=== PATIENT | female | born 1980 | race Two or more races ===

== ENCOUNTER 2020-01-06 14:25 | Emergency (ER) | payer MEDICAID, OTHER ==
[~2020-01-06] VITALS: Ht 162.6 cm; Wt 49.9 kg
[2020-01-06 15:11] LABS: Basophils # (auto) 0.1 10 ^3/uL (0-0.2); Basophils % (auto) 0.6 % (0.0-2.0); Eosinophils # (auto) 0.1 10 ^3/uL (0-0.8); Hematocrit 36.8 % (36.0-46.0); Hemoglobin 12.4 g/dL (12.2-16.2); Lymphocytes # (auto) 1.3 10 ^3/uL (0.4-5.4); Lymphocytes % (auto) 14.1 % (10.0-50.0); Mean Corpuscular Hgb Conc. 33.5 g/dL (32.0-36.0); Mean Corpuscular Volume 92.3 fL (80.0-100.0); Monocytes # (auto) 0.6 10 ^3/uL (0-1.3); Monocytes % (auto) 6.5 % (0.0-12.0); Neutrophils # (auto) 7.4 10 ^3/uL (1.6-8.6); Neutrophils % (auto) 77.8 % (37.0-80.0); Platelet Count (auto) 232 10^3/uL (140-450); Red Blood Cells 3.99 10^6/uL (4.0-5.20); Red Cell Distribution Width 13.5 % (11.8-14.3); White Blood Cell 9.5 10^3/uL (4.4-10.8)
[2020-01-06 16:00] LABS: Urine Bacteria FEW /hpf (None Seen); Urine Blood TRACE /uL (Negative); Urine Specific Gravity 1.005 (1.001-1.035); Urine WBC 11 /hpf (0 - 5)
[2020-01-06 17:01] VITALS: BP 108/66
== END 2020-01-06 17:20 | disposition home or self-care (01) ==
LOC: ER 14:25
DX: O23.41 Unspecified infection of urinary tract in pregnancy, first trimester (principal); Z3A.01 Less than 8 weeks gestation of pregnancy
CPT/HCPCS: 36415; 76801; 81001; 84702; 85025

== ENCOUNTER → 2024-09-12 | Outpatient (CLI) | payer BC, OTHER ==
[2024-09-12 14:34] LABS: Basophils # (auto) 0 10 ^3/uL (0-0.2); Basophils % (auto) 0.5 % (0.0-2.0); Eosinophils # (auto) 0.1 10 ^3/uL (0-0.8); Hematocrit 36.5 % (36.0-46.0); Hemoglobin 12.7 g/dL (12.2-16.2); Lymphocytes # (auto) 1.1 10 ^3/uL (0.4-5.4); Lymphocytes % (auto) 11.4 % (10.0-50.0); Mean Corpuscular Hemoglobin 32.3 pg (28.0-32.0); Mean Corpuscular Hgb Conc. 34.7 g/dL (32.0-36.0); Mean Corpuscular Volume 93.2 fL (80.0-100.0); Monocytes # (auto) 0.6 10 ^3/uL (0-1.3); Monocytes % (auto) 5.7 % (0.0-12.0); Neutrophils % (auto) 81.4 % (37.0-80.0); Platelet Count (auto) 218 10^3/uL (140-450); Red Blood Cells 3.92 10^6/uL (4.0-5.20); Red Cell Distribution Width 13.6 % (11.8-14.3); White Blood Cell 9.8 10^3/uL (4.4-10.8)
[2024-09-12 15:03] LABS: Alanine Aminotransferase 13 U/L (7-40); Albumin 3.8 g/dL (3.2-4.8); Anion Gap 5 (5-15); BUN/Creatinine Ratio 14.9 (10.0-20.0); Blood Urea Nitrogen 10 mg/dL (9-23); Calcium 9.5 mg/dL (8.7-10.4); Carbon Dioxide 24 mmol/L (20-31); Cholesterol 190 mg/dL (< 200); Glucose 87 mg/dL (74-106); Potassium 3.9 mmol/L (3.5-5.1); Sodium 137 mmol/L (136-145); Thyroid Stimulating Hormone 1.24 uIU/mL (0.55-4.78); Triglycerides 125 mg/dL (< 150)
[2024-09-12 15:04] LABS: Alkaline Phosphatase 46 U/L (46-116); Aspartate Aminotransferase 12 U/L (13-40); Bilirubin, Total 0.4 mg/dL (0.2-1.0); Chloride 108 mmol/L (98-107); HDL Cholesterol 76 mg/dL (40-59); LDL Cholesterol 105 mg/dL (< 100); Total Protein 6.3 g/dL (5.7-8.2)
[2024-09-12 15:11] LABS: Beta HCG, Quantitative 93040.6 mIU/mL (1.5-4.2)
[2024-09-12 15:31] LABS: Amphetamine Screen, Urine Neg (NEGATIVE); Barbiturate Scree,Urine Neg (NEGATIVE); Benzodiazephine Screen, Urine Neg (NEGATIVE); Cannabinoid Screen, Urine Neg (NEGATIVE); Cocaine Screen, Urine Neg (NEGATIVE); Opiate Scree,Urine Neg (NEGATIVE); Phencyclidine Screen, Urine Neg (NEGATIVE)
[2024-09-13 06:06] LABS: RPR Non Reactive (Non Reactive)
[2024-09-13 10:50] LABS: Varicella Zoster IgG Antibody Reactive (Non Reactive)
[2024-09-13 15:07] LABS: Chlamydia Trachomatis, NAA Negative (Negative); Neisseria gonorrhoeae, NAA Negative (Negative)
[2024-09-15 04:06] LABS: QuantiFERON-TB Gold Plus Negative (Negative)
== END | disposition home or self-care (01) ==
LOC: LAB 14:02
PROVIDERS: ATTEND Obstetrics & Gynecology
DX: Z34.80 Encounter for supervision of other normal pregnancy, unspecified trimester (principal); N39.0 Urinary tract infection, site not specified
CPT/HCPCS: 36415; 80053; 80061; 80307; 84439; 84443; 84702; 85025; 86592; 86762; 86787; 86850; 86900; 86901; 87086; 87340

== ENCOUNTER 2025-01-03 19:20 | Observation (INO) | payer BC, OTHER ==
[2025-01-03 20:06] LABS: Urine Bacteria None Seen /hpf (None Seen)
[2025-01-03 20:07] LABS: Basophils # (auto) 0 10 ^3/uL (0-0.2); Basophils % (auto) 0.4 % (0.0-2.0); Eosinophils # (auto) 0.1 10 ^3/uL (0-0.8); Eosinophils % (auto) 0.9 % (0.0-7.0); Hemoglobin 13.2 g/dL (12.2-16.2); Lymphocytes # (auto) 1.2 10 ^3/uL (0.4-5.4); Lymphocytes % (auto) 12.9 % (10.0-50.0); Mean Corpuscular Hemoglobin 32.3 pg (28.0-32.0); Mean Corpuscular Hgb Conc. 34.7 g/dL (32.0-36.0); Mean Corpuscular Volume 92.9 fL (80.0-100.0); Monocytes # (auto) 0.4 10 ^3/uL (0-1.3); Monocytes % (auto) 4.1 % (0.0-12.0); Neutrophils # (auto) 7.4 10 ^3/uL (1.6-8.6); Neutrophils % (auto) 81.7 % (37.0-80.0); Nucleated Red Blood Cells % 0.1 %; Platelet Count (auto) 181 10^3/uL (140-450); Red Blood Cells 4.09 10^6/uL (4.0-5.20); Red Cell Distribution Width 13.9 % (11.8-14.3); White Blood Cell 9.1 10^3/uL (4.4-10.8)
[2025-01-03 20:20] LABS: Alanine Aminotransferase 16 U/L (7-40); Albumin 3.9 g/dL (3.2-4.8); Alkaline Phosphatase 82 U/L (46-116); Anion Gap 8 (5-15); Aspartate Aminotransferase 15 U/L (13-40); BUN/Creatinine Ratio 14.8 (10.0-20.0); Calcium 9.5 mg/dL (8.7-10.4); Carbon Dioxide 22 mmol/L (20-31); Potassium 4.1 mmol/L (3.5-5.1); Sodium 138 mmol/L (136-145); Total Protein 6.1 g/dL (5.7-8.2); Uric Acid 3.7 mg/dL (3.1-7.8)
[2025-01-03 20:21] LABS: Bilirubin, Total 0.8 mg/dL (0.2-1.0)
[2025-01-03 20:25] LABS: Protein, Urine 79.7 mg/dL (1-14)
[2025-01-03 20:25] LABS: INR 0.91 (0.9-1.15); Partial Thromboplastin Time 26.7 SEC (24.5-34.5); Prothrombin Time 9.7 sec (9.3-11.8)
[2025-01-03 20:28] LABS: Urine Protein/Creatinine Ratio 3.62
[2025-01-03] MEDS: LACTATED RINGER'S 1,000 ML IV ONE (20:39)
[2025-01-03 20:40] LABS: Blood Urea Nitrogen 8 mg/dL (9-23); Chloride 108 mmol/L (98-107); Glucose 71 mg/dL (74-106)
[2025-01-03 20:49] LABS: Urine Blood Negative /uL (Negative); Urine Clarity Clear (Clear); Urine Color Light-Yellow (Yellow); Urine Protein, UAD 1+ (Negative); Urine Specific Gravity 1.006 (1.001-1.035); Urine Squamous Epithelial Cell FEW /hpf (<5); Urine Urobilinogen Normal (Negative); Urine WBC 1 /HPF (0-5); Urine pH 7.5 (5.0-9.0)
--- NOTE | 2025-01-04 07:35 | DVHDS2 ---
Physician Discharge Progress N Final Diagnosis: abd pain,cramping 27wks Operations or Procedures: Operations or Procedures nst reviewed reactive,sono Condition on Discharge: Good Disposition: Home Discharge Instructions: Diet: Cardiac 2g Na,low cholest Activity: Light activity Medications: na Follow Up Care: Specialist: 1w Discharge Statement: "Patient was advised to return to the ER or call 911 if any headaches, dizziness, shortness of breath, chest pain, abdominal pain, bleeding, fevers, or worsening of medical condition. Patient was counseled about treatment plan, medications, possible side effects, patientverbalized understanding. All questions were answered to the best of my ability. This discharge took greater then 30 minutes in planning, reviewing documentation, counseling the patient, and discussing with other team members." Visit Coding OBGYN Date of Service: January 03, 2025 Billing Provider: ROBBIN JOY DO HEMATOLOGY NURSE Common Visit Codes: 28732-OTHQFRB OBS CARE (HIGH) HEMATOLOGY NURSE Procedure Codes: 07812-48- NON-STRESS TEST ROBBIN JOY DO January 04, 2025 07:35
== END 2025-01-03 21:59 | disposition home or self-care (01) ==
LOC: LDRP 19:20
PROVIDERS: ADMIT Obstetrics & Gynecology; ATTEND Obstetrics & Gynecology
DX: O62.9 Abnormality of forces of labor, unspecified (principal); R79.1 Abnormal coagulation profile; Z98.890 Other specified postprocedural states; Z79.899 Other long term (current) drug therapy; Z3A.27 27 weeks gestation of pregnancy
CPT/HCPCS: 36415; 59025; 80053; 81001; 81002; 82570; 84156; 84550; 85025; 85610; 85730; 94760; 96360; 96361; G0378

== ENCOUNTER 2025-01-05 07:46 | Observation (INO) | payer BC, OTHER ==
[~2025-01-05] VITALS: Ht 167.6 cm; Wt 71.7 kg
[2025-01-05] MEDS ORDERED: PREN1TAB71 OR ×2 (10:29)
[2025-01-05 11:06] LABS: Protein, Urine <6 mg/dL (1-14); Urine Total Volume, 24 Hours 2750 mL
[2025-01-05 11:44] LABS: Creatinine, Urine 65.71 mg/dL (30.0-125.0); Urine Protein/Creatinine Ratio 0.09
[2025-01-05 11:47] LABS: Urine Bacteria FEW /hpf (None Seen); Urine Blood Negative /uL (Negative); Urine Clarity Clear (Clear); Urine Color Light-Yellow (Yellow); Urine Mucus FEW (None Seen); Urine Protein, UAD Negative (Negative); Urine Specific Gravity 1.012 (1.001-1.035); Urine Squamous Epithelial Cell MOD /hpf (<5); Urine Urobilinogen Normal (Negative); Urine WBC 1 /HPF (0-5)
[2025-01-05 11:50] LABS: Protein, Urine < 6.0 mg/dL (1-14)
--- NOTE | 2025-01-06 06:16 | DVHDS2 ---
Discharge Summary Date of Admission January 05, 2025 at 10:00 Date of Discharge: January 05, 2025 Admitting Diagnosis PIH rule out 24 hr protein Labs/Diagnostic Data: Laboratory Results Test 01/05/25 11:00 01/05/25 10:26 Urine Color Light-yellow (Yellow) Urine Clarity Clear (Clear) Urine pH 6.0 (5.0-9.0) Urine Specific [place] 1.012 (1.001-1.035) Urine Protein Negative (Negative) Urine Ketones Negative (Negative) Urine Blood Negative /uL (Negative) Urine Nitrite Negative (Negative) Urine Bilirubin Negative (Negative) Urine Urobilinogen Normal mg/dL (Negative) Urine Leukocyte Esterase Negative /uL (Negative) Urine RBC <1 /hpf (0 - 4) Urine Microscopic WBC 1 /HPF (0-5) Urine Squamous Epithelial Cells Mod /hpf (<5) Urine Bacteria Few /hpf (None Seen) Urine Mucus Few (None Seen) Urine Creatinine 65.71 mg/dL (30.0-125.0) Urine Protein/Creatinine Ratio 0.09 Urine Glucose Normal mg/dL (Normal) Urine Total Protein < 6.0 mg/dL (1-14) Urine Total Protein 24 Hour mg/24 Hr (<149.1) Brief Hx & Hospital Course: NST reassuring Condition at Discharge: Good Final Diagnosis/Problems List NO sign of PIH Discharge Disposition: Home Discharge Instruct/Medications Diet: Regular Activity: No Restrictions, As Tolerated Activity comment: PIH precautions Follow Up/Referral: as scheduled Discharge Statement: "Patient was advised to return to the ER or call 911 if any headaches, dizziness, shortness of breath, chest pain, abdominal pain, bleeding, fevers, or worsening of medical condition. Patient was counseled about treatment plan, medications, possible side effects, patientverbalized understanding. All questions were answered to the best of my ability. This discharge took greater then 30 minutes in planning, reviewing docu mentation, counseling the patient, and discussing with other team members." ASSESSMENT ASSESSMENT Assessment Visit Coding OBGYN Date of Service: January 05, 2025 Billing Provider: JORDYN TOVAR DO SERVICES DELIVERY DRIVER Common Visit Codes: 70634-WIL/OBS SAME DATE (LOW), 15267-ZZQ/OBS SAME DATE (MOD), 88532-XHB/OBS SAME DATE (HIGH) SERVICES DELIVERY DRIVER Procedure Codes: 57691-36- NON-STRESS TEST JORDYN TOVAR DO January 06, 2025 06:16
== END 2025-01-05 12:18 | disposition home or self-care (01) ==
LOC: LDRP 10:00
PROVIDERS: ADMIT Obstetrics & Gynecology; ATTEND Obstetrics & Gynecology
DX: O13.3 Gestational [pregnancy-induced] hypertension without significant proteinuria, third trimester (principal); O26.893 Other specified pregnancy related conditions, third trimester; R10.10 Upper abdominal pain, unspecified; Z98.890 Other specified postprocedural states; Z79.899 Other long term (current) drug therapy; Z3A.00 Weeks of gestation of pregnancy not specified
CPT/HCPCS: 59025; 81001; 81002; 82570; 84156; G0378

== ENCOUNTER → 2025-01-08 | Outpatient (CLI) | payer BC, OTHER ==
[~2025-01-08] MED LIST: PREN1TAB71 OR
[2025-01-08 08:40] LABS: Basophils # (auto) 0 10 ^3/uL (0-0.2); Basophils % (auto) 0.3 % (0.0-2.0); Eosinophils # (auto) 0.1 10 ^3/uL (0-0.8); Eosinophils % (auto) 1.4 % (0.0-7.0); Hematocrit 33.4 % (36.0-46.0); Hemoglobin 11.7 g/dL (12.2-16.2); Lymphocytes # (auto) 1.2 10 ^3/uL (0.4-5.4); Lymphocytes % (auto) 13.5 % (10.0-50.0); Mean Corpuscular Hemoglobin 32.6 pg (28.0-32.0); Mean Corpuscular Hgb Conc. 34.9 g/dL (32.0-36.0); Mean Corpuscular Volume 93.2 fL (80.0-100.0); Monocytes # (auto) 0.6 10 ^3/uL (0-1.3); Monocytes % (auto) 6.5 % (0.0-12.0); Neutrophils # (auto) 7.2 10 ^3/uL (1.6-8.6); Neutrophils % (auto) 78.3 % (37.0-80.0); Platelet Count (auto) 184 10^3/uL (140-450); Red Blood Cells 3.58 10^6/uL (4.0-5.20); White Blood Cell 9.2 10^3/uL (4.4-10.8)
[2025-01-08 09:05] LABS: Alanine Aminotransferase 17 U/L (7-40); Albumin 3.5 g/dL (3.2-4.8); Alkaline Phosphatase 74 U/L (46-116); Anion Gap 8 (5-15); BUN/Creatinine Ratio 15.1 (10.0-20.0); Carbon Dioxide 24 mmol/L (20-31); Chloride 106 mmol/L (98-107); Glucose 87 mg/dL (74-106); Potassium 3.8 mmol/L (3.5-5.1); Sodium 138 mmol/L (136-145); Total Protein 5.8 g/dL (5.7-8.2)
[2025-01-08 09:06] LABS: Bilirubin, Total 0.3 mg/dL (0.2-1.0)
[2025-01-08 09:07] LABS: Aspartate Aminotransferase 13 U/L (13-40); Blood Urea Nitrogen 8 mg/dL (9-23)
[2025-01-10 02:06] LABS: Chlamydia Trachomatis, NAA Negative (Negative); Neisseria gonorrhoeae, NAA Negative (Negative)
== END | disposition home or self-care (01) ==
LOC: LAB 08:10
DX: Z34.80 Encounter for supervision of other normal pregnancy, unspecified trimester (principal); Z3A.00 Weeks of gestation of pregnancy not specified
CPT/HCPCS: 36415; 80053; 82951; 85025; 86780; 86850; 86900; 86901

== ENCOUNTER 2025-02-06 12:58 | Observation (INO) | payer BC ==
[~2025-02-06] VITALS: Ht 162.6 cm; Wt 68.0 kg
--- NOTE | 2025-02-06 14:23 | DVH ---
BIOPHYSICAL PROFILE HISTORY: advanced maternal age TECHNIQUE: Multiple transabdominal real-time grayscale sonographic images through the gravid uterus of the fetus with duplex Doppler color flow and M-mode spectral analysis FINDINGS: BIOPHYSICAL PROFILE: breathing score: movement score: 2 tone score: 2 Quantitative KEVIN score: 2 (KEVIN: 11.0 Cm.) Total score: 8 The cervix is closed and measures 3.1 cm. Single live fetus in cephalic presentation. heart rate 172 beats per minute. Anterior placenta without previa or abruption IMPRESSION: Biophysical profile score: 8
[2025-02-06] MEDS ORDERED: TERBUTALINE SULFATE 1 MG/ML 1ML VIAL SC ONE (14:24)
[2025-02-06] MEDS ORDERED: LACTATED RINGER'S 1,000 ML IV SCH (14:45)
[2025-02-06] MEDS: TERBUTALINE SULFATE 1 MG/ML 1ML VIAL SC SCH (14:53)
[2025-02-06] MEDS: LACTATED RINGER'S 1,000 ML IV ONE (14:58)
[2025-02-06] MEDS ORDERED: BETAMETHASONE ACET (30mg/5ml) 5ml Vial 6mg/ml ONE (15:15)
[2025-02-06] MEDS: BETAMETHASONE ACET (30mg/5ml) 5ml Vial 6mg/ml IM SCH (15:41)
[2025-02-06] MEDS: NIFEdipine 10 MG CAP PO ONE (16:50)
--- NOTE | 2025-02-07 18:55 | DVHDS2 ---
Physician Discharge Progress N Final Diagnosis: ptl 32wks Operations or Procedures: Operations or Procedures nst reviwed reactive,sono Condition on Discharge: Good Disposition: Home Discharge Instructions: Diet: Regular Activity: Light activity Medications: na Follow Up Care: Specialist: 1w Discharge Statement: "Patient was advised to return to the ER or call 911 if any headaches, dizziness, shortness of breath, chest pain, abdominal pain, bleeding, fevers, or worsening of medical condition. Patient was counseled about treatment plan, medications, possible side effects, patientverbalized understanding. All questions were answered to the best of my ability. This discharge took greater then 30 minutes in planning, reviewing documentation, counseling the patient, and discussing with other team members." Visit Coding OBGYN Date of Service: Feb 06, 2025 Billing Provider: ROBBIN JOY DO SHIPPER RECEIVER Common Visit Codes: 70735-[id number] OBS CARE (HIGH) SHIPPER RECEIVER Procedure Codes: 01073-69- NON-STRESS TEST ROBBIN JOY DO Feb 07, 2025 18:55
== END 2025-02-06 16:55 | disposition home or self-care (01) ==
LOC: UNDOADMOB 12:58 → LDRP 12:58
PROVIDERS: ADMIT Obstetrics & Gynecology; ATTEND Obstetrics & Gynecology
DX: O60.03 Preterm labor without delivery, third trimester (principal); Z3A.32 32 weeks gestation of pregnancy; Z79.899 Other long term (current) drug therapy; Z98.890 Other specified postprocedural states
CPT/HCPCS: 76818; 81002; 94760; 96360; 96361; 96372; G0378; J0702; J3105; 59025; 76819

== ENCOUNTER 2025-02-07 06:56 | Observation (INO) | payer BC, OTHER ==
[~2025-02-07] VITALS: Ht 162.6 cm; Wt 68.0 kg
[2025-02-07] MEDS: BETAMETHASONE ACET (30mg/5ml) 5ml Vial 6mg/ml IM ONE (07:31)
--- NOTE | 2025-02-07 18:41 | DVHDS2 ---
Physician Discharge Progress N Final Diagnosis: ptl 32wks Operations or Procedures: Operations or Procedures nst reactive reviewed Condition on Discharge: Good Disposition: Home Discharge Instructions: Diet: Regular Activity: Light activity Medications: na Follow Up Care: Specialist: 1w Discharge Statement: "Patient was advised to return to the ER or call 911 if any headaches, dizziness, shortness of breath, chest pain, abdominal pain, bleeding, fevers, or worsening of medical condition. Patient was counseled about treatment plan, medications, possible side effects, patientverbalized understanding. All questions were answered to the best of my ability. This discharge took greater then 30 minutes in planning, reviewing documentation, counseling the patient, and discussing with other team members." Visit Coding OBGYN Date of Service: Feb 07, 2025 Billing Provider: ROBBIN JOY DO SENIOR PRIVATE CLIENT ADVISOR Common Visit Codes: 44794-[id number] INP/OBS CARE (HIGH) SENIOR PRIVATE CLIENT ADVISOR Procedure Codes: 19846-76- NON-STRESS TEST ROBBIN JOY DO Feb 07, 2025 18:41
== END 2025-02-07 07:42 | disposition home or self-care (01) ==
LOC: LDRP 06:56
PROVIDERS: ADMIT Obstetrics & Gynecology; ATTEND Obstetrics & Gynecology
DX: O60.03 Preterm labor without delivery, third trimester (principal); Z3A.32 32 weeks gestation of pregnancy; Z79.899 Other long term (current) drug therapy; Z98.890 Other specified postprocedural states
CPT/HCPCS: 59025; 81002; 94760; 96372; G0378

== ENCOUNTER 2025-02-14 06:36 | Observation (INO) | payer BC, OTHER ==
--- NOTE | 2025-02-14 10:30 | DVHDS2 ---
Physician Discharge Progress N Final Diagnosis: AMA,Threatened labor Secondary Diagnosis: Encounter for surveillance Operations or Procedures: Operations or Procedures NST/BPP/KEVIN Cx length all wnl Condition on Discharge: Stable Disposition: Home Discharge Instructions: Diet: Regular Activity: Light activity Follow Up/Referral: As scheduled Medications: N/A Follow Up Care: Discharge Statement: "Patient was advised to return to the ER or call 911 if any headaches, dizziness, shortness of breath, chest pain, abdominal pain, bleeding, fevers, or worsening of medical condition. Patient was counseled about treatment plan, medications, possible side effects, patientverbalized understanding. All questions were answered to the best of my ability. This discharge took greater then 30 minutes in planning, reviewing documentation, counseling the patient, and discussing with other team members." Visit Coding OBGYN Date of Service: Feb 14, 2025 Billing Provider: MARLEY PEREZ DO BAG TESTER Common Visit Codes: 95982-JPU/OBS SAME DATE (MOD) BAG TESTER Procedure Codes: 03229-78- NON-STRESS TEST MARLEY PEREZ DO Feb 14, 2025 10:30
--- NOTE | 2025-02-14 10:38 | DVH ---
BIOPHYSICAL PROFILE HISTORY: AMA/PTL Comparison Study: US BIOPHYSICAL PROFILE on DOS: 02/06/25 TECHNIQUE: Multiple real-time grayscale sonographic images through the gravid uterus of the fetus wi th duplex Doppler color flow and M-mode spectral analysis FINDINGS: BIOPHYSICAL PROFILE: breathing score: 2 movement score: 2 tone score: 2 Quantitative KEVIN score: 2 (KEVIN: 15.8 Cm.) Total score: 8 The cervix is closed. Measures 4.1 cm. Single live fetus in cephalic presentation. heart rate 149 beats per minute. Fundal placenta without previa or abruption IMPRESSION: Biophysical profile score: 8
== END 2025-02-14 10:36 | disposition home or self-care (01) ==
LOC: LDRP 09:00
PROVIDERS: ADMIT Obstetrics & Gynecology; ATTEND Obstetrics & Gynecology
DX: O47.03 False labor before 37 completed weeks of gestation, third trimester (principal); Z3A.33 33 weeks gestation of pregnancy; Z79.899 Other long term (current) drug therapy; Z98.890 Other specified postprocedural states
CPT/HCPCS: 59025; 76819; 81002; G0378; 76818

== ENCOUNTER 2025-02-21 06:58 | Observation (INO) | payer BC, OTHER ==
[2025-02-21] MEDS ORDERED: NIFE10CA52 PO (09:36)
--- NOTE | 2025-02-21 09:59 | DVH ---
BIOPHYSICAL PROFILE HISTORY: PTL/AMA TECHNIQUE: Multiple transabdominal real-time grayscale sonographic images through the gravid uterus o f the fetus with duplex doppler color flow and M-mode spectral analysis FINDINGS: BIOPHYSICAL PROFILE: breathing score: 2 movement score: 2 tone score: 2 Quantitative KEVIN score: 2 (KEVIN: 10.1 cm.) Total score: 8/8 The cervix 4.9 cm Single live fetus in cephalic presentation. heart rate 126 beats per minute. Grade 2 fundal placenta without previa or abruption Biophysical profile score 8/8 corresponding to an ADY of 04/03/25 IMPRESSION: Biophysical profile score: 8/8
--- NOTE | 2025-02-21 13:16 | DVHDS2 ---
Physician Discharge Progress N Final Diagnosis: ptl,ama 34wks Operations or Procedures: Operations or Procedures nst reactive reviwed,sono Condition on Discharge: Good Disposition: Home Discharge Instructions: Diet: Regular Activity: Light activity Medications: na Follow Up Care: Specialist: 1w Discharge Statement: "Patient was advised to return to the ER or call 911 if any headaches, dizziness, shortness of breath, chest pain, abdominal pain, bleeding, fevers, or worsening of medical condition. Patient was counseled about treatment plan, medications, possible side effects, patientverbalized understanding. All questions were answered to the best of my ability. This discharge took greater then 30 minutes in planning, reviewing documentation, counseling the patient, and discussing with other team members." Visit Coding OBGYN Date of Service: Feb 21, 2025 Billing Provider: ROBBIN JOY DO SAP MOBILITY ARCHITECT Common Visit Codes: 31425-VOSPWBO OBS CARE (HIGH) SAP MOBILITY ARCHITECT Procedure Codes: 15541-01- NON-STRESS TEST ROBBIN JOY DO Feb 21, 2025 13:16
== END 2025-02-21 10:37 | disposition home or self-care (01) ==
LOC: UNDOADMOB 09:00 → LDRP 09:00 → UNDODISOB 10:37
PROVIDERS: ADMIT Obstetrics & Gynecology; ATTEND Obstetrics & Gynecology
DX: O60.03 Preterm labor without delivery, third trimester (principal); O09.523 Supervision of elderly multigravida, third trimester; Z3A.34 34 weeks gestation of pregnancy; Z79.899 Other long term (current) drug therapy; Z98.890 Other specified postprocedural states
CPT/HCPCS: 76818; 81002; 94760; G0378; 59025; 76819

== ENCOUNTER 2025-02-28 09:01 | Observation (INO) | payer BC, OTHER ==
[~2025-02-28 09:01] MED LIST changes: +NIFE10CA52 PO
--- NOTE | 2025-02-28 10:29 | DVH ---
BIOPHYSICAL PROFILE HISTORY: PTL, AMA TECHNIQUE: Multiple transabdominal real-time grayscale sonographic images through the gravid uterus of the fetus with duplex Doppler color flow and M-mode spectral analysis FINDINGS: BIOPHYSICAL PROFILE: breathing score: 2 movement score: 2 tone score: 2 Quantitative KEVIN score: 2 (KEVIN: 10.4 Cm.) Total score: 8 The cervix measures 4.2 cm. Single live fetus in cephalic presentation. heart rate 137 beats per minute. Fundal/anterior placenta without previa or abruption IMPRESSION: Biophysical profile score: 8
--- NOTE | 2025-02-28 13:12 | DVHDS2 ---
Physician Discharge Progress N Final Diagnosis: PTL, AMA 35wks Operations or Procedures: Operations or Procedures nst reactive reviwed,sono Condition on Discharge: Good Disposition: Home Discharge Instructions: Diet: Regular Activity: No Restrictions, As Tolerated Follow Up/Referral: weekly NST Medications: na Follow Up Care: Specialist: 4d Discharge Statement: "Patient was advised to return to the ER or call 911 if any headaches, dizziness, shortness of breath, chest pain, abdominal pain, bleeding, fevers, or worsening of medical condition. Patient was counseled about treatment plan, medications, possible side effects, patientverbalized understanding. All questions were answered to the best of my ability. This discharge took greater then 30 minutes in planning, reviewing documentation, counseling the patient, and discussing with other team members." Visit Coding OBGYN Date of Service: Feb 28, 2025 Billing Provider: ROBBIN JOY DO METAL CUT OFF SAW TENDER Common Visit Codes: [id number] OBS CARE (HIGH) METAL CUT OFF SAW TENDER Procedure Codes: 28609-87- NON-STRESS TEST ROBBIN JOY DO Feb 28, 2025 13:12
== END 2025-02-28 10:47 | disposition home or self-care (01) ==
LOC: LDRP 09:01
PROVIDERS: ADMIT Obstetrics & Gynecology; ATTEND Obstetrics & Gynecology
DX: O60.03 Preterm labor without delivery, third trimester (principal); O09.523 Supervision of elderly multigravida, third trimester; Z3A.35 35 weeks gestation of pregnancy; Z79.899 Other long term (current) drug therapy; Z98.890 Other specified postprocedural states
CPT/HCPCS: 76818; 81002; G0378; 59025; 76819

== ENCOUNTER → 2025-03-05 | Outpatient (CLI) | payer BC, OTHER ==
[2025-03-05 11:16] LABS: Hematocrit 35.6 % (36.0-46.0); Hemoglobin 12.2 g/dL (12.2-16.2); Mean Corpuscular Hemoglobin 31.2 pg (28.0-32.0); Mean Corpuscular Volume 90.7 fL (80.0-100.0); Nucleated Red Blood Cells % 0.0 %
[2025-03-06 12:07] LABS: Chlamydia Trachomatis, NAA Negative (Negative); Neisseria gonorrhoeae, NAA Negative (Negative)
== END | disposition home or self-care (01) ==
LOC: LAB 10:46
PROVIDERS: ATTEND Obstetrics & Gynecology
DX: Z34.80 Encounter for supervision of other normal pregnancy, unspecified trimester (principal); Z72.51 High risk heterosexual behavior; Z3A.00 Weeks of gestation of pregnancy not specified
CPT/HCPCS: 36415; 85025; 86780

== ENCOUNTER 2025-03-06 07:28 | Observation (INO) | payer BC, OTHER ==
--- NOTE | 2025-03-06 10:54 | DVH ---
CLINICAL HISTORY: labor. Advanced maternal age. COMPARISON: US BIOPHYSICAL PROFILE on DOS: 02/28/25, US BIOPHYSICAL PROFILE on DOS: 02/21/25, US BIOPHY SICAL PROFILE on DOS: 02/14/25 TECHNIQUE: biophysical profile was performed. Transabdominal sonographic images of the fetus we re obtained. Transvaginal imaging was performed to evaluate the cervix FINDINGS: The fetus is in cephalic position. heart rate measures 162 BPM. Amniotic fluid index measures 11.9 cm. The placenta is fundal/anterior in position without evidence of previa or abruption . There is mild funneling of the cervix measuring up to 0.6 cm. Cervical length measures 3.4 cm. BPP profile is an overall score of 8/8, with 2/2 points for breathing, with at least one episode of breathing over a 30 second duration during a 30 minute observation, 2/2 points for m ovements, with 3 or more discrete body or limb movements, 2/2 points for tone, with one or more episodes of extremity extension with return to flexion, or opening and closing of hand, and 2/ 2 points for amniotic fluid, with at least 1 pocket of amniotic fluid that measures 2 cm in 2 perpend icular planes. IMPRESSION: 1. BPP score of 8/8. 2. Funneling of the cervix. Cervical length measures 3.4 cm.
--- NOTE | 2025-03-07 07:46 | DVHDS2 ---
Physician Discharge Progress N Final Diagnosis: ama,ptl 36wks Operations or Procedures: Operations or Procedures nst reactive reviwed,sono Condition on Discharge: Good Disposition: Home Discharge Instructions: Diet: Regular Activity: No Restrictions, As Tolerated Medications: na Follow Up Care: Specialist: 1w Discharge Statement: "Patient was advised to return to the ER or call 911 if any headaches, dizziness, shortness of breath, chest pain, abdominal pain, bleeding, fevers, or worsening of medical condition. Patient was counseled about treatment plan, medications, possible side effects, patientverbalized understanding. All questions were answered to the best of my ability. This discharge took greater then 30 minutes in planning, reviewing docume ntation, counseling the patient, and discussing with other team members." Visit Coding OBGYN Date of Service: Mar 06, 2025 Billing Provider: ROBBIN JOY DO WHITEWATER RAFTING GUIDE Common Visit Codes: [id number] INP/OBS CARE (HIGH) WHITEWATER RAFTING GUIDE Procedure Codes: 69846-46- NON-STRESS TEST ROBBIN JOY DO Mar 07, 2025 07:46
== END 2025-03-06 11:02 | disposition home or self-care (01) ==
LOC: LDRP 10:00
PROVIDERS: ADMIT Obstetrics & Gynecology; ATTEND Obstetrics & Gynecology
DX: O60.03 Preterm labor without delivery, third trimester (principal); O09.523 Supervision of elderly multigravida, third trimester; Z3A.36 36 weeks gestation of pregnancy; Z79.899 Other long term (current) drug therapy
CPT/HCPCS: 76818; 81002; 94760; G0378; 59025; 76819

== ENCOUNTER 2025-03-14 02:43 | Observation (INO) | payer BC, OTHER ==
--- NOTE | 2025-03-14 10:51 | DVH ---
BIOPHYSICAL PROFILE HISTORY: AMA Comparison Study: US BIOPHYSICAL PROFILE on DOS: 03/06/25, US BIOPHYSICAL PROFILE on DOS: 02/28/25, US B IOPHYSICAL PROFILE on DOS: 02/21/25 TECHNIQUE: Multiple real-time grayscale sonographic images through the gravid uterus of the fetus wit h duplex doppler color flow and M-mode spectral analysis FINDINGS: BIOPHYSICAL PROFILE: breathing score: 2 movement score: 2 tone score: 2 Quantitative KEVIN score: 2 (KEVIN: 10.8 cm.) Total score: 8/8 Single live fetus in cephalic presentation. heart rate 145 beats per minute. Fundal/anterior placenta without previa or abruption Biophysical profile score 8/8 corresponding to an ADY of 04/03/25 IMPRESSION: Biophysical profile score: 8/8
--- NOTE | 2025-03-14 15:03 | DVHDS2 ---
Physician Discharge Progress N Final Diagnosis: AMA 37WKS Operations or Procedures: Operations or Procedures NST RAECTIVE REVIWED,SHAWNO Condition on Discharge: Good Disposition: Home Discharge Instructions: Diet: Regular Activity: No Restrictions, As Tolerated Medications: NA Follow Up Care: Specialist: 1W Discharge Statement: "Patient was advised to return to the ER or call 911 if any headaches, dizziness, shortness of breath, chest pain, abdominal pain, bleeding, fevers, or worsening of medical condition. Patient was counseled about treatment plan, medications, possible side effects, patientverbalized understanding. All questions were answered to the best of my ability. This discharge took greater then 30 minutes in planning, reviewing documentat ion, counseling the patient, and discussing with other team members." Visit Coding OBGYN Date of Service: Mar 14, 2025 Billing Provider: ROBBIN JOY DO LIQUEFACTION PLANT OPERATOR Common Visit Codes: [id number]-[id number] OBS CARE (HIGH) ROBBIN JOY DO Mar 14, 2025 15:03
== END 2025-03-14 11:20 | disposition home or self-care (01) ==
LOC: LDRP 10:04
PROVIDERS: ADMIT Obstetrics & Gynecology; ATTEND Obstetrics & Gynecology
DX: O09.523 Supervision of elderly multigravida, third trimester (principal); Z3A.37 37 weeks gestation of pregnancy; Z79.899 Other long term (current) drug therapy; Z98.890 Other specified postprocedural states
CPT/HCPCS: 76818; 81002; 94760; G0378; 59025; 76819

== ENCOUNTER 2025-03-21 06:24 | Observation (INO) | payer BC, OTHER ==
--- NOTE | 2025-03-21 11:44 | DVH ---
BIOPHYSICAL PROFILE HISTORY: AMA TECHNIQUE: Multiple transabdominal real-time grayscale sonographic images through the gravid uterus of the fetus with duplex Doppler color flow and M-mode spectral analysis FINDINGS: BIOPHYSICAL PROFILE: breathing score: 2 movement score: 2 tone score: 2 Quantitative KEVIN score: 2 (KEVIN: 7.6 Cm.) Total score: 8 The cervix not well visualized. Single live fetus in cephalic presentation. heart rate 140 beats per minute. Fudnal placenta without previa or abruption IMPRESSION: Biophysical profile score: 8
--- NOTE | 2025-03-22 08:09 | DVHDS2 ---
Physician Discharge Progress N Final Diagnosis: IUP @ 38.1wks ama Operations or Procedures: Operations or Procedures nst reactive reviewd,sukhdev Condition on Discharge: Good Disposition: Home Discharge Instructions: Diet: Regular Activity: Light activity Medications: na Follow Up Care: Specialist: 1w Discharge Statement: "Patient was advised to return to the ER or call 911 if any headaches, dizziness, shortness of breath, chest pain, abdominal pain, bleeding, fevers, or worsening of medical condition. Patient was counseled about treatment plan, medications, possible side effects, patientverbalized understanding. All questions were answered to the best of my ability. This discharge took greater then 30 minutes in planning, reviewing documentation, counseling the patient, and discussing with other team members." Visit Coding OBGYN Date of Service: Mar 21, 2025 Billing Provider: ROBBIN JOY DO MANAGER RN Common Visit Codes: [id number] OBS CARE (HIGH) MANAGER RN Procedure Codes: 05075-32- NON-STRESS TEST ROBBIN JOY DO Mar 22, 2025 08:09
== END 2025-03-21 12:47 | disposition home or self-care (01) ==
LOC: LDRP 11:10
PROVIDERS: ADMIT Obstetrics & Gynecology; ATTEND Obstetrics & Gynecology
DX: O09.523 Supervision of elderly multigravida, third trimester (principal); Z3A.38 38 weeks gestation of pregnancy; Z79.899 Other long term (current) drug therapy
CPT/HCPCS: 76818; 81002; 94760; G0378; 59025; 76819

== ENCOUNTER 2025-03-22 07:05 | Observation (INO) | payer BC, OTHER ==
--- NOTE | 2025-03-22 13:08 | DVH ---
BIOPHYSICAL PROFILE HISTORY: Low KEVIN TECHNIQUE: Multiple transabdominal real-time grayscale sonographic images through the gravid uterus o f the fetus with duplex doppler color flow and M-mode spectral analysis FINDINGS: BIOPHYSICAL PROFILE: breathing score: 2 movement score: 2 tone score: 2 Quantitative KEVIN score: 2 (KEVIN: 9.2 cm.) Total score: 8/8 Single live fetus in cephalic presentation. heart rate 161 beats per minute. Grade anterior placenta without previa or abruption Biophysical profile score 8/8 corresponding to an ADY of 04/03/25 IMPRESSION: Biophysical profile score: 8/8
--- NOTE | 2025-03-23 20:48 | DVHDS2 ---
Physician Discharge Progress N Final Diagnosis: ama,low raquel 38wks Operations or Procedures: Operations or Procedures nst reactive reviwed,sono Condition on Discharge: Good Disposition: Home Discharge Instructions: Diet: Regular Activity: No Restrictions, As Tolerated Medications: na Follow Up Care: Specialist: 1w Discharge Statement: "Patient was advised to return to the ER or call 911 if any headaches, dizziness, shortness of breath, chest pain, abdominal pain, bleeding, fevers, or worsening of medical condition. Patient was counseled about treatment plan, medications, possible side effects, patientverbalized understanding. All questions were answered to the best of my ability. This discharge took greater then 30 minutes in planning, reviewing do cumentation, counseling the patient, and discussing with other team members." Visit Coding OBGYN Date of Service: Mar 23, 2025 Billing Provider: ROBBIN JOY DO RECREATION SUPERINTENDENT Common Visit Codes: [id number] INP/OBS CARE (HIGH) RECREATION SUPERINTENDENT Procedure Codes: 28443-19- NON-STRESS TEST ROBBIN JOY DO Mar 23, 2025 20:48
== END 2025-03-22 13:37 | disposition home or self-care (01) ==
LOC: LDRP 11:01
PROVIDERS: ADMIT Obstetrics & Gynecology; ATTEND Obstetrics & Gynecology
DX: O42.913 Preterm premature rupture of membranes, unspecified as to length of time between rupture and onset of labor, third trimester (principal); O09.523 Supervision of elderly multigravida, third trimester; Z3A.38 38 weeks gestation of pregnancy; Z79.899 Other long term (current) drug therapy; Z98.890 Other specified postprocedural states
CPT/HCPCS: 76818; 81002; G0378; 59025; 76819

== ENCOUNTER 2025-03-28 19:05 | Observation (INO) | payer BC, OTHER ==
[~2025-03-28] VITALS: Ht 162.6 cm; Wt 68.0 kg
[~2025-03-28 19:05] MED LIST changes: -NIFE10CA52 PO
--- NOTE | 2025-03-28 21:11 | DVHDS2 ---
Physician Discharge Progress N Final Diagnosis: Amnitoic Fluid Check Problems List: (1) Advanced maternal age (AMA), 40 years or greater (2) Multigravida Operations or Procedures: Operations or Procedures NST reactive and reassuring Cephalic presentation KEVIN 8.7 Condition on Discharge: Stable Disposition: Home Discharge Instructions: Diet: Regular Activity: No Restrictions, As Tolerated Follow Up/Referral: Will come Friday 03/30 for NST/ KEVIN recheck Possible IOL Sunday 04/01 Medications: PNV Follow Up Care: Primary Care Provider: Dr Robbin Stevens Discharge Statement: "Patient was advised to return to the ER or call 911 if any headaches, dizziness, shortness of breath, chest pain, abdominal pain, bleeding, fevers, or worsening of medical condition. Patient was counseled about treatment plan, medications, possible side effects, patientverbalized understanding. All questions were answered to the best of my ability. This discharge took greater then 30 minutes in planning, reviewing documentation, counseling the patient, and discussing with other team members." Discharge Care Plan Goals Know Procedures Instructions Kick counts Visit Coding OBGYN Date of Service: Mar 28, 2025 Billing Provider: ROBBIN STEVENS DO AUTO PORTER Common Visit Codes: 51098-QSRMMEO OBS CARE (MOD) VALENTINE RODRIGES CNMJul 2024 21:11
--- NOTE | 2025-03-28 22:52 | DVH ---
BIOPHYSICAL PROFILE HISTORY: Decreased movement TECHNIQUE: Multiple transabdominal real-time grayscale sonographic images through the gravid uterus of the fetus with duplex Doppler color flow and M-mode spectral analysis FINDINGS: BIOPHYSICAL PROFILE: breathing score: 2 movement score: 2 tone score: 2 Quantitative KEVIN score: 2 (KEVIN: 8.7 Cm.) Total score: 8/8 Single live fetus in cephalic presentation. heart rate 148 beats per minute. Anterior placenta without previa or abruption Single live fetus at 39 weeks 1 day by dates Biophysical profile score 8/8 corresponding to an ADY of 04/03/2025 IMPRESSION: 1. Biophysical profile score: 8/Borderline oligohydramnios.
== END 2025-03-28 21:23 | disposition home or self-care (01) ==
LOC: LDRP 19:05
PROVIDERS: ADMIT Obstetrics & Gynecology; ATTEND Obstetrics & Gynecology
DX: O09.523 Supervision of elderly multigravida, third trimester (principal); Z3A.39 39 weeks gestation of pregnancy; Z79.899 Other long term (current) drug therapy
CPT/HCPCS: 76818; 81002; 94760; G0378; 59025; 76819

== ENCOUNTER 2025-03-30 00:20 | Observation (INO) | payer BC, OTHER ==
[~2025-03-30 00:20] MED LIST changes: +NIFE10CA52 PO
--- NOTE | 2025-03-30 12:03 | DVH ---
OB ULTRASOUND, LIMITED CLINICAL INDICATION: KEVIN Check TECHNIQUE: Multiple grayscale ultrasound and M-mode images were obtained of the pelvis for evaluation of intrauterine . COMPARISON: US BIOPHYSICAL PROFILE on DOS: 03/28/25, US BIOPHYSICAL PROFILE on DOS: 03/22/25, US BIOPHY SICAL PROFILE on DOS: 03/21/25 FINDINGS: A single living fetus is seen in cephalic presentation. Biophysical profile: 04/11 breathin movements: 2 tone: 2 Amniotic fluid: 2 Placenta: Anterior. Amniotic fluid: Visibly normal. KEVIN 6.9 cm heart rate: 138 beats/min. A complete anatomic survey was not performed on this exam. IMPRESSION: Biophysical profile: 04/11
--- NOTE | 2025-03-30 20:12 | DVHDS2 ---
Physician Discharge Progress N Final Diagnosis: Term IUP, encounter for NST/BPP/KEVIN Operations or Procedures: Operations or Procedures NST BPP KEVIN Commentary: Commentary Normal KEVIN PATIENT: LAURA MURO ACCT: [id number] UNIT: [id number] : 1980 LOC: [facility] ROOM / BED: TRIAGE2 / A AGE / SEX: 44 / F ADM STATUS: ADM IN SERVICE 1111 ORDERING PHYSICIAN: MARLEY PEREZ DO PROCEDURE(s): BPP - BIOPHYSICAL PROFILE REASON: KEVIN Check ORDER NUMBER(s): [id number], ACCESSION NUMBER(s): [id number] OB ULTRASOUND, LIMITED CLINICAL INDICATION: KEVIN Check TECHNIQUE: Multiple grayscale ultrasound and M-mode images were obtained of the pelvis for evaluation of intrauterine . COMPARISON: US BIOPHYSICAL PROFILE on DOS: 03/28/25, US BIOPHYSICAL PROFILE on DOS: 03/22/25, US BIOPHYSICAL PROFILE on DOS: 03/21/25 FINDINGS: A single living fetus is seen in cephalic presentation. Biophysical profile: 04/11 breathin movements: 2 tone: 2 Amniotic fluid: 2 Placenta: Anterior. Amniotic fluid: Visibly normal. KEVIN 6.9 cm heart rate: 138 beats/min. A complete anatomic survey was not performed on this exam. IMPRESSION: Biophysical profile: 04/11 ATED BY: MISAEL ROSAS MD DICTATED DATE/TIME: 03/30/25 1200 Condition on Discharge: Stable Disposition: Home Discharge Instructions: Diet: Regular Activity: No Restrictions, As Tolerated Follow Up/Referral: as scheduled Medications: N/A Follow Up Care: Discharge Statement: "Patient was advised to return to the ER or call 911 if any headaches, dizziness, shortness of breath, chest pain, abdominal pain, bleeding, fevers, or worsening of medical condition. Patient was counseled about treatment plan, medications, possible side effects, patientverbalized understanding. All questions were answered to the best of my ability. This discharge took greater then 30 minutes in planning, reviewing documentation, counseling the patient, and discussing with other team members." Visit Coding OBGYN Date of Service: Mar 30, 2025 Billing Provider: MARLEY PEREZ DO NURSING PROGRAM DIRECTOR Common Visit Codes: [id number]/[id number] SAME DATE (MOD) NURSING PROGRAM DIRECTOR Procedure Codes: 09805-60- NON-STRESS TEST MARLEY PEREZ DO Mar 30, 2025 20:12
== END 2025-03-30 12:32 | disposition home or self-care (01) ==
LOC: LDRP 11:00
PROVIDERS: ADMIT Obstetrics & Gynecology; ATTEND Obstetrics & Gynecology
DX: O48.0 Post-term pregnancy (principal); Z3A.39 39 weeks gestation of pregnancy; Z79.899 Other long term (current) drug therapy
CPT/HCPCS: 76818; 81002; 94760; G0378; 59025; 76819

== ENCOUNTER 2025-04-01 00:54 | Inpatient (IN) | payer BC, OTHER ==
[~2025-04-01] VITALS: Ht 154.9 cm; Wt 68.0 kg
[~2025-04-01 00:54] MED LIST changes: -NIFE10CA52 PO
[2025-04-01] MEDS: LACTATED RINGER'S 1,000 ML IV SCH (08:15)
[2025-04-01] MEDS ORDERED: LIDOCAINE 2%HCL (LOCAL ANESTH.) INJ 20ML MDV IJ PRN (08:15)
[2025-04-01] MEDS ORDERED: NALBUPHINE HCL 10 MG/1ml INJECTION IV PRN (08:15)
[2025-04-01 08:53] LABS: Hematocrit 35.1 % (36.0-46.0); Hemoglobin 12.1 g/dL (12.2-16.2); Mean Corpuscular Hemoglobin 31.0 pg (28.0-32.0); Mean Corpuscular Volume 90.1 fL (80.0-100.0); Nucleated Red Blood Cells % 0.0 %; Urine Protein, UAD Negative (Negative)
[2025-04-01 09:09] LABS: INR 0.91 (0.9-1.15); Partial Thromboplastin Time 23.9 SEC (24.5-34.5); Prothrombin Time 9.7 sec (9.3-11.8)
[2025-04-01 09:11] LABS: Alanine Aminotransferase 10 U/L (7-40); Albumin 3.9 g/dL (3.2-4.8); Anion Gap 9 (5-15); BUN/Creatinine Ratio 10.0 (10.0-20.0); Bilirubin, Total 0.4 mg/dL (0.2-1.0); Calcium 9.9 mg/dL (8.7-10.4); Carbon Dioxide 24 mmol/L (20-31); Chloride 106 mmol/L (98-107); Glucose 90 mg/dL (74-106); Potassium 3.6 mmol/L (3.5-5.1); Sodium 139 mmol/L (136-145); Total Protein 6.1 g/dL (5.7-8.2)
[2025-04-01 09:18] LABS: Amphetamine Screen, Urine Neg (NEGATIVE); Barbiturate Scree,Urine Neg (NEGATIVE); Benzodiazephine Screen, Urine Neg (NEGATIVE); Cannabinoid Screen, Urine Neg (NEGATIVE); Cocaine Screen, Urine Neg (NEGATIVE); Opiate Scree,Urine Neg (NEGATIVE); Phencyclidine Screen, Urine Neg (NEGATIVE)
[2025-04-01 09:19] LABS: Alkaline Phosphatase 191 U/L (46-116); Blood Urea Nitrogen 7 mg/dL (9-23)
[2025-04-01] MEDS: DERMOPLAST 60ML BOTTLE TOP PRN (10:06)
[2025-04-01] MEDS: WITCH HAZEL-GLYCERIN PAD TOP PRN (10:06)
[2025-04-01] MEDS: PHISODERM TOP SOLN 240ML BTL TOP PRN (10:06)
[2025-04-01] MEDS ORDERED: ONDANSETRON HCL 4 MG/2 ML VIAL IV PRN (11:00)
--- NOTE | 2025-04-01 13:04 | DVHHP2 ---
OB CC & HPI Date Date of Admission: Apr 01, 2025 Patient Identification: : 4 Para: 3 EDC: Apr 03, 2025 EGA: 39.5wk Chief Complaints: Reason for admission: induction of labor Indication for induction: other (Low KEVIN ) History of Present Complaints HPI: 44yo IUP@ 39.5wks presents for scheduled IOL Denies UC/LOF/VB/LINARES/vision changes/RUQ pain. Endorses +FM. PNC: Routine PNC at [facility] OB, adequate visits, PNC uncomplicated GTT wnl, dating based on 8wk sono, GBS negative. OB hx: x3 1: 2011, 40WK, female 6lb 6oz 2: 2017, 37wk, male, 6lb 5 oz 3:2019, 40wk, female, 7lb 4oz Past Medical History Cardiac: No pertinent Hx Pulmonary: No pertinent Hx Central Nervous System: No pertinent Hx GI: No pertinent Hx Hemotology/Oncology: No pertinent Hx Hepatobiliary: No pertinent Hx Psychiatric: No pertinent Hx Musculoskeletal: No pertinent Hx Rheumotologic: No pertinent Hx Infectious Disease: No peritnent Hx ENT: No pertinent Hx Renal/: No pertinent Hx Endocrine: No pertinent Hx Dermatology: No pertinent Hx Past Surgical History: No pertinent Hx OB History OB History Care: Good Care Ultrasounds: Normal mid trimester US Obstetrical Complications: None Medical Complications: None Allergies: Coded Allergies: NO KNOWN ALLERGIES (Unverified , 01/06/20) Home Meds Reported Medications Vit W/ Ferrous Fumara (PNV PLUS MULTIVI) Plus Tab, 1 OR, TAB 01/05/25 Current Medications Current Medications Medications (Trade) Dose Ordered Sig/Joan Route PRN Reason Start Time Stop Time Status Last Admin Lactated Ringer's 1,000 ml @ 125 mls/hr Q8H IV 04/01/25 08:15 04/01/25 08:15 Nalbuphine HCl (Nubain) 10 mg Q4HP PRN IV MODERATE PAIN (4-6 PAIN SCALE) 04/01/25 08:15 Witch Phyllis (Tucks) 1 pad PRN PRN TOP PERINEAL AREA DISCOMFORT 04/01/25 08:15 04/01/25 10:06 Sodium Lauryl Sulfate (Phisoderm) 240 ml PRN PRN TOP PERINEAL AREA DISCOMFORT 04/01/25 08:15 04/01/25 10:06 Benzocaine (Dermoplast) 1 applic PRN PRN TOP PERINEAL AREA DISCOMFORT 04/01/25 08:15 04/01/25 10:06 Lidocaine HCl (Xylocaine) 20 ml ONCE PRN IJ PERINEAL AREA DISCOMFORT 04/01/25 08:15 Misoprostol (Cytotec) 50 mcg Q4HPRN PRN PO CERVICAL RIPENING 04/01/25 09:45 04/01/25 10:18 Ondansetron HCl (Zofran) 4 mg Q4HPRN PRN IV NAUSEA / VOMITING 04/01/25 11:00 Family & Social History Family/Social History Past Family/Social History: FMH: CAD Blood Type: A- (Rhogam given January 2025) Rubella: immune RPR/VDRL: Negative GBS Status: Negative HBsAG: Negative Review of Systems Constitutional: No symptom reported Ears, Nose, & Throat: No symptom reported Eyes: No symptom reported Pulmonary/Respiratory: No symptom reported Cardiovascular: No symptom reported Gastrointestinal: No symptom reported Genitourinary: No symptom reported Musculoskeletal: No symptom reported Skin: No symptom reported Psychiatric: No symptom reported Endocrine: No symptom reported Hemotologic/Lymphatic: No symptom reported OB Admission Exam Physical Exam Vitals: VSS, see CPN EFW: 7lb 13 oz in office HEENT: TMs Normal, Nasal Mucosa Normal, Eyes non-injected, Oropharynx Normal, PERRLA, Moist Membranes, EOMI Heart: Rhythm Normal Lungs: Clear Abdomen: Gravid Extremities: Normal Reflexes: Normal Cervical Dilatation: 1cm Effacement: 0% Station: -3 Membranes: Intact Heart Rate: 130's Accelerations: Accelerations Present Decelerations: No Decelerations Senior Program Planner Variability: Average (6-25) Contractions on Admission: None OB Plan Plan Admitting Diagnosis: Induction of Labor Plan: Induction Induction Methd: Misoprostol protocol Other Plan: A: 44yo IUP@39.5wks Induction of Labor for low KEVIN Category I EFM Intact Membranes GBS negative P: Admit to L&D Informed consent obtained Discussed risks, benefits, alternatives of IOL. Pt consents to IOL with PO cytotec. monitoring per order Routine labs ordered Pain mgmt PRN Frequent position changes in and out of bed encouraged Limit SVE unless necessary Intrauterine resuscitation PRN Anticipate Dr. Stevens offered primary section, pt declined. Will continue to co- manage with Dr. Stevens. Visit Coding OBGYN Date of Service: Apr 01, 2025 Billing Provider: CHELLY JOY CNM PETROLEUM PRODUCTION ENGINEER Common Visit Codes: [id number] INP/OBS CARE (MOD) PETROLEUM PRODUCTION ENGINEER Procedure Codes: 49066-92- NON-STRESS TEST CHELLY JOY CNM Apr 01, 2025 13:04
--- NOTE | 2025-04-01 15:20 | DVHPN2 ---
CNM Labor Progress Note Date and Time Seen Date Seen: Apr 01, 2025 Time Seen: 15:10 Subjective Patient reports: Feels worse Objective Vital Signs VSS, see CPN Monitoring Method Monitoring Method: External Heart Rate Heart Rate Baseline: 135 Heart Rate Variability: Moderate Presence of FHR Accelerations: Yes Presence of FHR Decelerations: No Are all 5 Components of the FH: Yes Contractions Contractions Frequency: Other (2-3 min) Duration of Contraction: 90 Contractions Intensity: Moderate Contractions Resting Tone: Relaxed Membranes Membranes: Intact Vaginal Exam Vag Exam Deferred: No (3.5/50/-2, FB inserted with 30 ml sterile fluid with pt consent) Vaginal Exam Presentation: VTX Vaginal Exam Show: None Medications Medications - Pitocin: No Medication - Epidural: No Medication - Other one dose of cytotec given Lab Results Lab Results Vital Signs Date Time Temp Pulse Resp B/P (MAP) Pulse Ox O2 Delivery O2 Flow Rate FiO2 04/01/25 17:10 110/56 Current Medications Medications (Trade) Dose Ordered Sig/Joan Start Time Stop Time Status Last Admin Dose Admin Lactated Ringer's 1,000 ml @ 125 mls/hr Q8H 04/01/25 08:15 04/01/25 19:49 125 MLS/HR Nalbuphine HCl (Nubain) 10 mg Q4HP PRN 04/01/25 08:15 Witch Phyllis (Tucks) 1 pad PRN PRN 04/01/25 08:15 04/01/25 10:06 1 PAD Sodium Lauryl Sulfate (Phisoderm) 240 ml PRN PRN 04/01/25 08:15 04/01/25 10:06 240 ML Benzocaine (Dermoplast) 1 applic PRN PRN 04/01/25 08:15 04/01/25 10:06 1 APPLIC Lidocaine HCl (Xylocaine) 20 ml ONCE PRN 04/01/25 08:15 Misoprostol (Cytotec) 50 mcg Q4HPRN PRN 04/01/25 09:45 04/01/25 10:18 50 MCG Ondansetron HCl (Zofran) 4 mg Q4HPRN PRN 04/01/25 11:00 Naloxone HCl (Narcan) 0.2 mg PRN ONCE 04/01/25 15:30 04/01/25 16:23 DC Ephedrine Sulfate (ePHEDrine SULFATE) 10 mg PRN ONCE 04/01/25 15:30 04/01/25 16:23 DC 04/01/25 17:11 10 MG Fentanyl Citrate 100 mcg ONCE ONCE 04/01/25 15:30 04/01/25 16:23 DC 04/01/25 17:10 100 MCG Lidocaine HCl (Xylocaine-Pf 2% Injection) 10 ml ONCE ONCE 04/01/25 15:30 04/01/25 16:23 DC Lactated Ringer's 1,000 ml @ 1,000 mls/hr Q1H ONCE 04/01/25 15:30 04/01/25 16:29 DC Oxytocin 1,000 ml @ 6 ml/hr Q24H 04/01/25 18:45 Terbutaline Sulfate (Brethine Inj) 0.25 mg ONCE PRN 04/01/25 18:45 Oxytocin 500 ml @ 999 mls/hr Q31M ONCE 04/01/25 18:45 04/01/25 19:15 DC 04/01/25 19:13 999 MLS/HR Oxytocin 500 ml @ 125 mls/hr Q4H ONCE 04/01/25 19:15 04/01/25 23:14 Methylergonovine Maleate (Methergine) 0.2 mg Q8HP PRN 04/01/25 18:45 04/03/25 18:44 Laboratory Tests Test 04/01/25 08:30 Range/Units White Blood Count 10.0 4.4-10.8 10^3/uL Red Blood Count 3.90 L 4.0-5.20 10^6/uL Hemoglobin 12.1 L 12.2-16.2 g/dL Hematocrit 35.1 L 36.0-46.0 % Mean Corpuscular Volume 90.1 80.0-100.0 fL Mean Corpuscular Hemoglobin 31.0 28.0-32.0 pg Mean Corpuscular Hemoglobin Concent 34.4 32.0-36.0 g/dL Red Cell Distribution Width 14.0 11.8-14.3 % Platelet Count 183 140-450 10^3/uL Mean Platelet Volume 9.0 6.9-10.8 fL Neutrophils (%) (Auto) 79.6 37.0-80.0 % Lymphocytes (%) (Auto) 13.7 10.0-50.0 % Monocytes (%) (Auto) 5.0 0.0-12.0 % Eosinophils (%) (Auto) 1.1 0.0-7.0 % Basophils (%) (Auto) 0.6 0.0-2.0 % Neutrophils # (Auto) 8.0 1.6-8.6 10 ^3/uL Lymphocytes # (Auto) 1.4 0.4-5.4 10 ^3/uL Monocytes # (Auto) 0.5 0-1.3 10 ^3/uL Eosinophils # (Auto) 0.1 0-0.8 10 ^3/uL Basophils # (Auto) 0.1 0-0.2 10 ^3/uL Nucleated Red Blood Cells 0.0 % Prothrombin Time 9.7 9.3-11.8 sec Prothrombin Time INR 0.91 0.9-1.15 Activated Partial Thromboplast Time 23.9 L 24.5-34.5 SEC Urine Color Light-yellow Yellow Urine Clarity Clear Clear Urine pH 6.0 5.0-9.0 Urine Specific [place] 1.009 1.001-1.035 Urine Protein Negative Negative Urine Ketones Negative Negative Urine Blood Negative Negative /uL Urine Nitrite Negative Negative Urine Bilirubin Negative Negative Urine Urobilinogen Normal Negative mg/dL Urine Leukocyte Esterase Negative Negative /uL Urine RBC 1 0 - 4 /hpf Urine Microscopic WBC < 1 0-5 /HPF Urine Squamous Epithelial Cells Few <5 /hpf Urine Bacteria None seen None Seen /hpf Urine Glucose Normal Normal mg/dL Sodium Level 139 136-145 mmol/L Potassium Level 3.6 3.5-5.1 mmol/L Chloride Level 106 98-107 mmol/L Carbon Dioxide Level 24 20-31 mmol/L Anion Gap 9 5-15 Blood Urea Nitrogen 7 L 9-23 mg/dL Creatinine 0.70 0.550-1.02 mg/dL Glomerular Filtration Rate Calc 111 >90 mL/min BUN/Creatinine Ratio 10.0 10.0-20.0 Serum Glucose 90 74-106 mg/dL Calcium Level 9.9 8.7-10.4 mg/dL Total Bilirubin 0.4 0.2-1.0 mg/dL Aspartate Amino Transferase (AST) 19 13-40 U/L Alanine Aminotransferase (ALT) 10 7-40 U/L Alkaline Phosphatase 191 H 46-116 U/L Total Protein 6.1 5.7-8.2 g/dL Albumin 3.9 3.2-4.8 g/dL Urine Opiates Screen Neg NEGATIVE Urine Fentanyl Screen Neg NEGATIVE Urine Barbiturates Screen Neg NEGATIVE Urine Phencyclidine Screen Neg NEGATIVE Urine Amphetamines Screen Neg NEGATIVE Urine Benzodiazepines Screen Neg NEGATIVE Urine Cocaine Screen Neg NEGATIVE Urine Cannabinoids Screen Neg NEGATIVE Treponema pallidum Antibody Non-reactive Negative Hepatitis C Antibody Negative Negative HIV (1&2) Antibody Negative Negative Assessment Assessment A: 44yo IUP@39.5wks Induction of Labor for low KEVIN Category I EFM Intact Membranes GBS negative Plan Plan P: RN to apply traction to barron balloon q 1 hr Discussed potential of starting pitocin with pt when UCs spaces out. Pt agrees with POC. monitoring per order Pain mgmt PRN Frequent position changes in and out of bed encouraged Limit SVE unless necessary Intrauterine resuscitation PRN Anticipate CNM will co-manage with Dr Stevens Plan discussed with: Patient, Spouse Visit Coding OBGYN Date of Service: Apr 01, 2025 Billing Provider: CHELLY JOY CNM COFFEE HOST Common Visit Codes: [id number] INP/OBS CARE(MOD) CHELLY JOY CNM Apr 01, 2025 15:20
[2025-04-01] MEDS ORDERED: NALOXONE HCL 0.4 MG/ML VIAL IV ONE (15:30)
[2025-04-01] MEDS: LIDOCAINE HCL 2 %PF INJ 10ML AMP IJ ONE ×2 (15:30→15:40)
[2025-04-01] MEDS: LACTATED RINGER'S 1,000 ML IV ONE (15:30)
[2025-04-01] MEDS: LIDOCAINE 2% (LOCAL ANESTH.) PF 5ml SDV ONE (15:37)
[2025-04-01] MEDS: fentaNYL CITRATE 100 MCG/2 ML VL ONE (15:38)
--- NOTE | 2025-04-01 17:02 | EPIDURAL ---
Anesthesia Procedural Note - Epidural Informed consent obtained?: Yes Medication Administered: Fentanyl 100 mcg Medication Administered: ePHEDrine 10 mg IV Sterile prept drape: Yes Spinal level of insertion: L3-L4 Test dose of lidocaine & Epine: Negative Infusion started: Yes Start time: 16:24 End time: 02:48 Procedure description Procedure description: 44 y/o admitted for induction of labor secondary to low KEVIN, with AOG 39.6 weeks, in active labor, desires PCEA for labor and delivery. Delivered a single live baby boy with APGARs 8 & 9 at 1 & 5 minutes respectively. Ms Lucas is back to baseline, able to ambulate and davis with her . Her epidural catheter has been pulled with tip intact. No oozing, bleeding, or redness around the epidural area. Total epidural time: 1624 - 0233 Total face to face time: 1624 - 1701. DONAL MCCARTY MD Apr 01, 2025 17:02
[2025-04-01] MEDS: fentaNYL CITRATE 100 MCG/2 ML VL IV ONE (17:10)
[2025-04-01] MEDS: ROPIVACAINE HCL 100 ML ONE (17:12)
[2025-04-01] MEDS ORDERED: TERBUTALINE SULFATE 1 MG/ML 1ML VIAL SC PRN (18:45)
[2025-04-01] MEDS ORDERED: METHYLERGONOVINE MALEATE 0.2 MG/ML AMP IM PRN (18:45)
[2025-04-01] MEDS: LACT. RINGERS/OXYTOCIN 20UNITS 500 ML IV ONE (19:13)
--- NOTE | 2025-04-01 22:49 | DVHPN2 ---
CNM Labor Progress Note Date and Time Seen Date Seen: Apr 01, 2025 Time Seen: 22:28 Subjective Patient reports: No new complaints Objective Vital Signs VSS, see CPN Monitoring Method Monitoring Method: External Heart Rate Heart Rate Baseline: 135 Heart Rate Variability: Moderate Presence of FHR Accelerations: Yes Presence of FHR Decelerations: No Are all 5 Components of the FH: Yes Contractions Contractions Frequency: Other (q2-3 min) Duration of Contraction: 100 Contractions Intensity: Moderate Contractions Resting Tone: Relaxed Membranes Membranes: Ruptured (AROM with pts consent) Amniotic Fluid Color: Bloody (tinged) Vaginal Exam Vag Exam Deferred: No Vaginal Exam Dilation: 5 Vaginal Exam Effacement: 60 Vaginal Exam Station: -2 Vaginal Exam Presentation: VTX Vaginal Exam Show: Small Medications Medications - Pitocin: Yes (12 mu) Medication - Epidural: Yes Medication - Other s/p 1 dose of PO cytotec Lab Results Lab Results Vital Signs Date Time Temp Pulse Resp B/P (MAP) Pulse Ox O2 Delivery O2 Flow Rate FiO2 04/01/25 17:10 110/56 Current Medications Medications (Trade) Dose Ordered Sig/Joan Start Time Stop Time Status Last Admin Dose Admin Lactated Ringer's 1,000 ml @ 125 mls/hr Q8H 04/01/25 08:15 04/01/25 19:49 125 MLS/HR Nalbuphine HCl (Nubain) 10 mg Q4HP PRN 04/01/25 08:15 Witch Phyllis (Tucks) 1 pad PRN PRN 04/01/25 08:15 04/01/25 10:06 1 PAD Sodium Lauryl Sulfate (Phisoderm) 240 ml PRN PRN 04/01/25 08:15 04/01/25 10:06 240 ML Benzocaine (Dermoplast) 1 applic PRN PRN 04/01/25 08:15 04/01/25 10:06 1 APPLIC Lidocaine HCl (Xylocaine) 20 ml ONCE PRN 04/01/25 08:15 Misoprostol (Cytotec) 50 mcg Q4HPRN PRN 04/01/25 09:45 04/01/25 10:18 50 MCG Ondansetron HCl (Zofran) 4 mg Q4HPRN PRN 04/01/25 11:00 Naloxone HCl (Narcan) 0.2 mg PRN ONCE 04/01/25 15:30 04/01/25 16:23 DC Ephedrine Sulfate (ePHEDrine SULFATE) 10 mg PRN ONCE 04/01/25 15:30 04/01/25 16:23 DC 04/01/25 17:11 10 MG Fentanyl Citrate 100 mcg ONCE ONCE 04/01/25 15:30 04/01/25 16:23 DC 04/01/25 17:10 100 MCG Lidocaine HCl (Xylocaine-Pf 2% Injection) 10 ml ONCE ONCE 04/01/25 15:30 04/01/25 16:23 DC Lactated Ringer's 1,000 ml @ 1,000 mls/hr Q1H ONCE 04/01/25 15:30 04/01/25 16:29 DC Oxytocin 1,000 ml @ 6 ml/hr Q24H 04/01/25 18:45 Terbutaline Sulfate (Brethine Inj) 0.25 mg ONCE PRN 04/01/25 18:45 Oxytocin 500 ml @ 999 mls/hr Q31M ONCE 04/01/25 18:45 04/01/25 19:15 DC 04/01/25 19:13 999 MLS/HR Oxytocin 500 ml @ 125 mls/hr Q4H ONCE 04/01/25 19:15 04/01/25 23:14 Methylergonovine Maleate (Methergine) 0.2 mg Q8HP PRN 04/01/25 18:45 04/03/25 18:44 Laboratory Tests Test 04/01/25 08:30 Range/Units White Blood Count 10.0 4.4-10.8 10^3/uL Red Blood Count 3.90 L 4.0-5.20 10^6/uL Hemoglobin 12.1 L 12.2-16.2 g/dL Hematocrit 35.1 L 36.0-46.0 % Mean Corpuscular Volume 90.1 80.0-100.0 fL Mean Corpuscular Hemoglobin 31.0 28.0-32.0 pg Mean Corpuscular Hemoglobin Concent 34.4 32.0-36.0 g/dL Red Cell Distribution Width 14.0 11.8-14.3 % Platelet Count 183 140-450 10^3/uL Mean Platelet Volume 9.0 6.9-10.8 fL Neutrophils (%) (Auto) 79.6 37.0-80.0 % Lymphocytes (%) (Auto) 13.7 10.0-50.0 % Monocytes (%) (Auto) 5.0 0.0-12.0 % Eosinophils (%) (Auto) 1.1 0.0-7.0 % Basophils (%) (Auto) 0.6 0.0-2.0 % Neutrophils # (Auto) 8.0 1.6-8.6 10 ^3/uL Lymphocytes # (Auto) 1.4 0.4-5.4 10 ^3/uL Monocytes # (Auto) 0.5 0-1.3 10 ^3/uL Eosinophils # (Auto) 0.1 0-0.8 10 ^3/uL Basophils # (Auto) 0.1 0-0.2 10 ^3/uL Nucleated Red Blood Cells 0.0 % Prothrombin Time 9.7 9.3-11.8 sec Prothrombin Time INR 0.91 0.9-1.15 Activated Partial Thromboplast Time 23.9 L 24.5-34.5 SEC Urine Color Light-yellow Yellow Urine Clarity Clear Clear Urine pH 6.0 5.0-9.0 Urine Specific [place] 1.009 1.001-1.035 Urine Protein Negative Negative Urine Ketones Negative Negative Urine Blood Negative Negative /uL Urine Nitrite Negative Negative Urine Bilirubin Negative Negative Urine Urobilinogen Normal Negative mg/dL Urine Leukocyte Esterase Negative Negative /uL Urine RBC 1 0 - 4 /hpf Urine Microscopic WBC < 1 0-5 /HPF Urine Squamous Epithelial Cells Few <5 /hpf Urine Bacteria None seen None Seen /hpf Urine Glucose Normal Normal mg/dL Sodium Level 139 136-145 mmol/L Potassium Level 3.6 3.5-5.1 mmol/L Chloride Level 106 98-107 mmol/L Carbon Dioxide Level 24 20-31 mmol/L Anion Gap 9 5-15 Blood Urea Nitrogen 7 L 9-23 mg/dL Creatinine 0.70 0.550-1.02 mg/dL Glomerular Filtration Rate Calc 111 >90 mL/min BUN/Creatinine Ratio 10.0 10.0-20.0 Serum Glucose 90 74-106 mg/dL Calcium Level 9.9 8.7-10.4 mg/dL Total Bilirubin 0.4 0.2-1.0 mg/dL Aspartate Amino Transferase (AST) 19 13-40 U/L Alanine Aminotransferase (ALT) 10 7-40 U/L Alkaline Phosphatase 191 H 46-116 U/L Total Protein 6.1 5.7-8.2 g/dL Albumin 3.9 3.2-4.8 g/dL Urine Opiates Screen Neg NEGATIVE Urine Fentanyl Screen Neg NEGATIVE Urine Barbiturates Screen Neg NEGATIVE Urine Phencyclidine Screen Neg NEGATIVE Urine Amphetamines Screen Neg NEGATIVE Urine Benzodiazepines Screen Neg NEGATIVE Urine Cocaine Screen Neg NEGATIVE Urine Cannabinoids Screen Neg NEGATIVE Treponema pallidum Antibody Non-reactive Negative Hepatitis C Antibody Negative Negative HIV (1&2) Antibody Negative Negative Assessment Assessment A: 44yo IUP@39.5wks Induction of Labor for low KEVIN Category I EFM AROM, blood tinged GBS negative Plan Plan P: Continue with IV pitocin RN to monitor for s/sx of infection monitoring per order Pain mgmt: epidural in place Frequent position changes in bed with peanut ball encouraged Limit SVE unless necessary Intrauterine resuscitation PRN Anticipate CNM will co-manage with Dr Stevens Plan discussed with: Patient, Spouse Visit Coding OBGYN Date of Service: Apr 01, 2025 Billing Provider: CHELLY JOY CNM SEAM HAMMERER Common Visit Codes: [id number] INP/OBS CARE(MOD) CHELLY JOY CNM Apr 01, 2025 22:49
[2025-04-02] MEDS: diphenhdrAMINE HCL 50 MG/1 ML VL IV ONE (00:15)
--- NOTE | 2025-04-02 02:33 | LDN2 ---
Labor and Delivery Note Date 04/02/25 Age 44 4 Para 4 AB 0 EDC 04/03/25 EGA 39.6 Diagnosis IOL for low KEVIN Vaginal Delivery: VTX Vacuum Assisted: No Placenta: Spontaneous Sex: Male Weight pending Apgars 8,9 Nuchal Cord Transected: No Amniotic Fluid: Clear Anesthesia Epidural Episiotomy: No Extension: No Repaired with N/A EBL QBL 100 ml Labs Laboratory Tests 04/01/25 08:30: HIV (1&2) Antibody Negative 09/12/24 14:15: Hepatitis B Surface Antigen Negative, Rubella Antibody Positive Blood Bank 04/01/25 08:30: Blood Type A NEGATIVE Complications none Conditions stable [employer] MD Liliane Comments/Significant Med Miguel Modified Ritgen done to deliver head due to bradycardia At 0146 this 44yo now delivered a viable Male with vigorous cry and pink skin tone by w/ APGARS 8/9, terminal meconium noted. RT at bedside for delivery. JOHNNA with right arm compound presentation. placed skin to skin on pts chest. Cord clamped and cut after pulsation ceased. Cord blood sent. Pitocin IV bolus started. Intact 3-vessel cord placenta delivered spontaneously, Flores.Accessory lobe noted and intact. Placenta sent to pathology. Patient had epidural. Cervix/vagina inspected (intact), no lacerations on perineum/labia noted. Fundus at U, firm, midline, and light lochia. QBL 100ml. VSS. Count correct x2. Patient to care and baby to couplet care, both stable. Delivery done by ROBERTO Montelongo and supervised by Edwina Corey CNM. Visit Coding OBGYN Date of Service: Apr 02, 2025 Billing Provider: CHELLY COREY CNM RN ANTE PARTUM Common Visit Codes: PROCEDURE ONLY RN ANTE PARTUM Procedure Codes: [id number] DEL INCLUDING CHELLY COREY CNM Apr 02, 2025 02:33
[2025-04-02] MEDS: IBUPROFEN 600 MG TAB PO PRN (02:39)
[2025-04-02] MEDS: LACT. RINGERS/OXYTOCIN 20UNITS 500 ML IV ONE (02:44)
[2025-04-02] MEDS: LACT. RINGERS/OXYTOCIN 20UNITS 1,000 ML IV SCH (02:46)
[2025-04-02] MEDS ORDERED: DOCUSATE SOD 100 MG CAP PO PRN (07:00)
[2025-04-02 09:10] VITALS: BP 90/52; PULSE 73; RESP 18; TEMP 97.7; O2SAT 97
[2025-04-02] MEDS: PRENATAL VITAMIN TAB PO SCH (10:00)
[2025-04-02 14:54] VITALS: BP 90/56; PULSE 70; RESP 18; TEMP 98; O2SAT 97
[2025-04-02 19:00] VITALS: BP 103/55; PULSE 70; RESP 16; TEMP 97.7; O2SAT 98
[2025-04-02] MEDS ORDERED: DOCU-265 PO (22:29)
[2025-04-02] MEDS ORDERED: PREN1TAB71 PO (22:29)
[2025-04-02] MEDS ORDERED: IBU600T PO (22:29)
[2025-04-02 23:00] VITALS: BP 103/54; PULSE 73; RESP 16; TEMP 98.3; O2SAT 98
[2025-04-02] MEDS: RHO (D) IMMUNE GLOBULIN 300 MCG INJ IM ONE (23:24)
[2025-04-02 23:27] VITALS: BP 97/58; PULSE 72; RESP 15; TEMP 97.5
[2025-04-02 23:31] VITALS: BP 96/57; PULSE 72; RESP 15; TEMP 97.6
--- NOTE | 2025-04-03 00:35 | DVHPN2 ---
Progress Note Date Seen: Apr 03, 2025 Subjective S: bleeding is less, eating food without issues, denies lightheaded/dizziness, pain well controlled with oral medications, no concerns with urinating, passing flatus, no BM yet, ambulating well, well vital signs Vital Sign Date Time Temp Pulse Resp B/P (MAP) Pulse Ox O2 Delivery O2 Flow Rate FiO2 04/02/25 23:31 97.6 72 15 96/57 97.6 04/02/25 23:00 98 04/02/25 19:00 Room Air Total Intake and Output 04/02/25 04/02/25 04/03/25 15:00 23:00 07:00 Output Total 500 ml 500 ml Balance -500 ml -500 ml medications Current Medications Medications Dose Ordered Sig/Joan Route Start Time Stop Time Status Last Admin Dose Admin Idalia Ferguson 1 pad PRN PRN TOP 04/01/25 08:15 04/01/25 10:06 1 PAD Sodium Lauryl Sulfate 240 ml PRN PRN TOP 04/01/25 08:15 04/01/25 10:06 240 ML Benzocaine 1 applic PRN PRN TOP 04/01/25 08:15 04/01/25 10:06 1 APPLIC Ondansetron HCl 4 mg Q4HPRN PRN IV 04/01/25 11:00 Methylergonovine Maleate 0.2 mg Q8HP PRN IM 04/01/25 18:45 04/03/25 18:44 Ibuprofen 600 mg Q6HP PRN PO 04/02/25 02:30 04/02/25 20:59 600 MG Acetaminophen 650 mg Q4HP PRN PO 04/02/25 02:30 Prenat Multivit/ [place]/Iron/Folic Ac 1 DAILY PO 04/02/25 10:00 Docusate Sodium 200 mg DAILYPRN PRN PO 04/02/25 07:00 laboratory and microbiology Laboratory Tests 04/01/25 08:30 Test 04/01/25 08:30 Range/Units Serum Glucose 90 74-106 mg/dL Objective O: VSS Chest: heart sounds normal and lung sounds clear bilaterally Abd: soft, non-tender, fundus at U/firm/midline, active bowel sounds, no rebound or guarding Perineum: intact, no erythema/edema noted Ext: Non-tender, No edema, 2+ BLE DTRs Lochia: minimal See lab results PP Rhogam given Problems(with codes): (1) (normal spontaneous vaginal delivery) (2) Intact perineum Assessment/Plan A: 44yo now PPD#1 s/p Acute blood loss anemia Rh- Rubella Immune P: D/C home today Rx sent to pharmacy precautions and preeclampsia warning signs reviewed F/U with [facility] OB office in 2 weeks Plan discussed with: Patient, Spouse Visit Coding OBGYN Date of Service: Apr 03, 2025 Billing Provider: CHELLY JOY CNM CRUTCHER HELPER Common Visit Codes: [id number] INP/OBS CARE(MOD) CHELLY JOY CNM Apr 03, 2025 00:35
--- NOTE | 2025-04-03 00:37 | DVHDS2 ---
Obstetrics Discharge Summary Obstetrics Discharge Summary Date of Admission: Apr 01, 2025 Date of Discharge: Apr 03, 2025 Reason For Admission: Induction of Labor (low KEVIN/AMA) Procedures: NST Intrapartum Procedures: Spontaneous vaginal deliv Procedures: Hct/date: (04/03/25), Hgb/date: (04/03/25) Operative Complicat: None Discharge Diagnosis: Term -Delivered Discharge Information: Activity (as tolerated, no heavy lifting and nothing in the vagina for 6 weeks), Diet (Routine), Medications (Rx sent), Instructions (Routine), Discharge to (Home), Accompanied by (partner), Discarge date (04/03/25) Visit Coding OBGYN Date of Service: Apr 03, 2025 Billing Provider: CHELLY JOY CNM ENVIRONMENTAL SCIENCE PROGRAM DIRECTOR Common Visit Codes: [id number] DISCH DAY <30MIN CHELLY JOY CNM Apr 03, 2025 00:37
--- NOTE | 2025-04-03 01:47 | DVHINCON2 ---
Date of Service if different f: Apr 03, 2025 Time of Service: 01:33 Consult Consult Note PSYCHIATRY L&D NEW CONSULT HPI: 44 yo F pt with no PPH seen today as pt scored 12 on depression scale. Psychiatry consulted for safety evaluation and recommendations in context of current presentation Per pt, reports this is her third and just gave to a healthy baby boy via uncomplicated vaginal delivery. Pt did have 'baby blues' s/p first but never took any psychiatric meds. pt reports feeling tired, nervous/anxious s/p delivery/labor and some "normal stress" which may have caused mild elevation on scoring on PPDS. Pt is not experiencing any current feelings of depression or feelings to harm self, others, or baby. Over the duration of her , pt denied having any feelings of depression or persistent sadness. Pt excited about her and looks forward to bonding with him once discharged from hospital. Pt denies depressed/sad mood, hopelessness, helplessness, loss of interest, decreased energy, poor sleep/appetite, excessive guilt, anhedonia, or amotivation. Also denies panic/anxiety symptoms, irritability/restlessness, lion, or psychosis. denies h x of manic, psychotic, or major depressive episodes Pt currently does not have psychiatrist/therapist out in community. Never sought MH services in past. Currently not on any psychotropic agents. No prior psych med trials. Denies any ETOH, THC or IDU. Never , lives with family/partner (baby patrick), some support system noted. Unknown trauma hx. Unknown FH. No acute medical issues, NKDA Does not have hx of suicide attempts, SIB, or prior psych hospitalizations. Currently denies SI/HI. Denies history of violence, unprovoked aggression, impulsivity, emotional dysregulation, or assaultive behaviors. Does not have access to firearms. Identifies self/family as PPF. No safety concerns noted during encounter. MSE: General Appearance/Behavior: Alert and awake; appears stated age, fair grooming and hygiene; calm and cooperative, fair eye contact, no PMA/PMR Speech: coherent, rrr Thought Process: linear, logical, and goal-directed Thought Content: Abnormal Thoughts and Perceptions: None Homicidality / Violent Thoughts: None Suicidality: none Hallucinations: None Delusions: denies paranoia, persecutory, or grandiose delusions Obsessions /compulsions : None Judgment and Insight: fair judgment with fair insight Mood & Affect: "good, little tired" with mood-congruent, appropriate Orientation: oriented to person, place, time Attention/Concentration: intact, follows conversation Memory: grossly intact Language: no unusual or inappropriate language Fund of Knowledge: appropriate Assessment: 44 yo F pt with no PPH seen today as pt scored 12 on depression scale Reports feeling tired, nervous/anxious s/p delivery/labor which may have caused mild elevation on scoring on PPDS. Nonetheless pt current denies SI/HI/AVH. Linear and goal directed in thought. Denies s/s of major depression, lion or psychosis Presently, pt does not show any signs of immediate danger to self or others that would warrant a higher level of care. Thus, pt does not meet criteria for 5150 or inpatient psych admission as is not DTS, DTO or GD Plan: Does not warrant inpatient psychiatric hospitalization or 5150 hold at this time No acute safety concerns Pt can be safely discharged back to current residence Does not warrant psychotropic med initiation at this time Supportive tx provided Education provided re: normal maternity blues vs post depression/psychosis Pt verbalized understanding and is receptive to above tx plan This case was discussed with L&D nurse/provider and all parties in agreement with above tx plan Mundo Juarez MD Plan discussed with: Patient MUNDO JUAREZ MD Apr 03, 2025 01:47
[2025-04-03 03:18] VITALS: BP 98/55; PULSE 79; RESP 16; TEMP 98.7; O2SAT 99
[2025-04-03] MEDS: ACETAMINOPHEN 325 MG TAB PO PRN (05:26)
[2025-04-03 07:24] LABS: Hematocrit 32.2 % (36.0-46.0); Hemoglobin 10.9 g/dL (12.2-16.2); Mean Corpuscular Hemoglobin 31.0 pg (28.0-32.0); Mean Corpuscular Volume 91.5 fL (80.0-100.0); Nucleated Red Blood Cells % 0.0 %
[2025-04-03 10:00] VITALS: BP 112/64; PULSE 71; RESP 18; TEMP 98.4; O2SAT 98
[2025-04-03 11:25] VITALS: TEMP 98.8
== END 2025-04-03 11:17 | disposition home or self-care (01) | DRG 806 ==
LOC: LDRP 08:03 → PREOBSVTOIN 08:04
PROVIDERS: ADMIT Obstetrics & Gynecology; ATTEND Obstetrics & Gynecology
PROC: 0U7C7DJ Dilation of Cervix with Intraluminal Device, Temporary, Via Natural or Artificial Opening (ICD-10-PCS; 2025-04-01)
PROC: 3E0R3BZ Introduction of Anesthetic Agent into Spinal Canal, Percutaneous Approach (ICD-10-PCS; 2025-04-01)
PROC: 00HU33Z Insertion of Infusion Device into Spinal Canal, Percutaneous Approach (ICD-10-PCS; 2025-04-01)
PROC: 10E0XZZ Delivery of Products of Conception, External Approach (ICD-10-PCS; principal; 2025-04-02)
PROC: 3E033VJ Introduction of Other Hormone into Peripheral Vein, Percutaneous Approach (ICD-10-PCS; 2025-04-02)
DX: O77.0 Labor and delivery complicated by meconium in amniotic fluid (principal); D62 Acute posthemorrhagic anemia; Z37.0 Single live birth; Z3A.39 39 weeks gestation of pregnancy; O90.81 Anemia of the puerperium
CPT/HCPCS: 36415; 59409; 62282; 80053; 80307; 81001; 85025; 85610; 85730; 86703; 86780; 86803; 86850; 86900; 86901; 90384; 94760; 94762; 96360; 96361; 96365; 96366; 96372; G0378; J2003; J2590